=== PATIENT | female | born 1990 | race Caucasian/White ===

== ENCOUNTER 2017-02-10 21:31 | Emergency (ER) | payer OTHER ==
[~2017-02-10] VITALS: Ht 167.6 cm; Wt 93.0 kg
[2017-02-10 21:53] VITALS: BP 144/65
[2017-02-10] MEDS ORDERED: oxyCODONE/APAP 5/325 1 TAB TABLET PO ONE (22:15)
--- NOTE | 2017-02-10 22:21 | PHYS DOC ---
Past Medical History Past Medical History: No Pertinent History Past Surgical History: Cholecystectomy, Tubal ligation, Other Additional Past Surgical Histo: R. KNEE Alcohol Use: Occasionally Drug Use: None Adult General Chief Complaint Chief Complaint: PAIN CONTROL HPI HPI Patient is a 26 year old female presenting to the emergency department for evaluation of right knee and leg swelling and pain. Patient had right knee surgery at the [facility] 5 days ago. She says that her surgeon was Dr. Rodriguez and he will no longer provide her pain medications and she is here for further pain management control. Patient feels that the leg is much more swollen. She smells of alcohol. Review of Systems Review of Systems Constitutional: Denies fever or chills [] Respiratory: Denies cough or shortness of breath [] Cardiovascular: No additional information not addressed in HPI [] GI: Denies abdominal pain, nausea, vomiting, bloody stools or diarrhea [] Musculoskeletal: Denies back pain. + joint pain [] Integument: Denies rash or skin lesions [] Neurologic: Denies headache, focal weakness or sensory changes [] Current Medications Current Medications Current Medications Medications (Trade) Dose Ordered Sig/Shandra Start Time Stop Time Status Last Admin Dose Admin Oxycodone/ Acetaminophen (Percocet 5/325) 2 tab 1X ONCE 02/10/17 22:15 02/10/17 22:16 DC 02/10/17 22:11 2 TAB Allergies Allergies Allergies Coded Allergies Type Severity Reaction Last Updated Verified ketorolac Allergy Intermediate 02/10/17 Yes latex Allergy Intermediate 02/10/17 Yes naproxen Allergy Intermediate 02/10/17 Yes Physical Exam Physical Exam Constitutional: Well developed, well nourished, no acute distress, non-toxic appearance. [] Cardiovascular:Heart rate regular rhythm, no murmur [] Lungs & Thorax: Bilateral breath sounds clear to auscultation [] Abdomen: Bowel sounds normal, soft, no tenderness, no masses, no pulsatile masses. [] Skin: Warm, dry, no erythema, no rash. No redness or signs or symptoms of cellulitis over wound. Pain dry and intact Back: No tenderness, no CVA tenderness. [] Extremities: Mild increased edema on right lower extremity. 1+ edema at most noted. Neurologic: Alert and oriented X 3, normal motor function, normal sensory function, no focal deficits noted. [] Current Patient Data Vital Signs Vital Signs Date Time Temp Pulse Resp B/P (MAP) Pulse Ox O2 Delivery O2 Flow Rate FiO2 02/10/17 22:11 16 02/10/17 21:53 98.3 74 100 Room Air 98.3 Lab Values Laboratory Tests Test 02/10/17 21:02 POC Urine HCG, Qualitative Hcg negative (Negative) EKG EKG [] Radiology/Procedures Radiology/Procedures Right Lower Extremity Venous Doppler Ultrasound Indication: Right lower extremity swelling status post knee surgery. Comparison: None. Procedure: Color Doppler, spectral Doppler, and grayscale images with and without compression are obtained in the area of the common femoral vein, superficial femoral vein - femoral vein junction, main femoral vein (superficial femoral vein) and popliteal vein. Veins of the proximal calf are also imaged. Findings: There is normal duplex flow, color flow and compressibility of all visualized vein segments. There is no evidence of deep venous thrombosis. Impression: No evidence of right lower extremity deep venous thrombosis. Electronically signed by: Randal Mack MD (02/10/2017 10:51 PM) DICTATED and SIGNED BY: RANDAL MACK MD DATE: 02/10/17 8181 Course & Med Decision Making Course & Med Decision Making Patient presenting to the emergency department for evaluation of right lower extremity pain and swelling. She is neurovascularly intact and her knee exam is quite unremarkable with no signs of infection. Seems that she is here mostly for pain control several told her that we would provide one prescription for pain control but she needs to follow with her surgeon and primary care provider for further pain control. I recommended rice and follow-up. She says she has follow-up with her orthopedic surgeon on Thursday. Patient aware and agreeable with plan for discharge and verbalized understanding of the need for short-term follow-up and strict ER return precautions discussed including worsening pain fevers or other general concerns. Dragon Disclaimer Dragon Disclaimer This electronic medical record was generated, in whole or in part, using a voice recognition dictation system. Departure Departure Impression: Primary Impression: Lower extremity edema Disposition: HOME, SELF-CARE Condition: GOOD Referrals: UNKNOWN PCP NAME (PCP) Patient Instructions: Edema Additional Instructions: REST YOUR LEG, PUT ON ICE ON IT, ELEVATE IT. KEEP YOUR FOLLOW UP. Scripts Oxycodone/Apap 5-325 (PERCOCET 5-325 MG TABLET) 1 Each Tablet 1 TAB PO PRN Q6HRS Y for PAIN, #14 TAB 0 Refills Prov: JADYN KENDALL DO 02/10/17 JADYN KENDALL DO Feb 10, 2017 22:21
--- NOTE | 2017-02-10 22:54 | RAD ---
Right Lower Extremity Venous Doppler Ultrasound Indication: Right lower extremity swelling status post knee surgery. Comparison: None. Procedure: Color Doppler, spectral Doppler, and grayscale images with and without compression are obtained in the area of the common femoral vein, superficial femoral vein - femoral vein junction, main femoral vein (superficial femoral vein) and popliteal vein. Veins of the proximal calf are also imaged. Findings: There is normal duplex flow, color flow and compressibility of all visualized vein segments. There is no evidence of deep venous thrombosis. Impression: No evidence of right lower extremity deep venous thrombosis. Electronically signed by: Randal Mack MD (02/10/2017 10:51 PM)
[2017-02-10] MEDS ORDERED: OXYC-323 PO (23:03)
== END 2017-02-10 23:06 | disposition home or self-care (01) ==
LOC: ER 21:31
DX: R60.0 Localized edema (principal); M25.561 Pain in right knee; R22.41 Localized swelling, mass and lump, right lower limb; Z98.890 Other specified postprocedural states; Z90.49 Acquired absence of other specified parts of digestive tract; Z98.51 Tubal ligation status; Z88.8 Allergy status to other drugs, medicaments and biological substances; Z88.6 Allergy status to analgesic agent; Z91.040 Latex allergy status
CPT/HCPCS: 81025; 93971; 99284-25